=== PATIENT | male | born 1985 | race Caucasian/White ===

== ENCOUNTER 2017-07-22 08:04 | Emergency (ER) | payer OTHER ==
[~2017-07-22] VITALS: Ht 177.8 cm; Wt 145.1 kg
[~2017-07-22 08:04] MED LIST: FLEXERIL10 MG PO; LODINE XL500 MG PO; VOLTAREN100 GM TP
[2017-07-22] MEDS ORDERED: PEPCID COMPLET1 EACH (08:12)
== END 2017-07-22 19:50 | disposition home or self-care (01) ==
LOC: ER 08:04
DX: K29.70 Gastritis, unspecified, without bleeding (principal); K76.0 Fatty (change of) liver, not elsewhere classified

== ENCOUNTER 2018-07-19 16:12 | Emergency (ER) | payer OTHER ==
[~2018-07-19] VITALS: Ht 177.8 cm; Wt 108.9 kg
[~2018-07-19 16:12] MED LIST changes: +PEPCID COMPLET1 EACH
[2018-07-19] MEDS ORDERED: CABERGOLINE (16:43)
== END 2018-07-19 22:13 | disposition home or self-care (01) ==
LOC: ER 16:12
DX: K62.5 Hemorrhage of anus and rectum (principal)